=== PATIENT | female | born 2000 | race Hispanic/Latino ===

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

== ENCOUNTER 2019-02-23 06:33 | Emergency (ER) | payer SELFPAY ==
[2019-02-23] MEDS ORDERED: NA CHLORIDE 0.9% 500 ML ONE (07:19)
[2019-02-23 07:52] LABS: Absolute Lymphocytes (CBC) 3.4 K/uL (0.7-4.9); Basophils % 0.5 % (0-1.3); Hematocrit 37.8 % (36.0-45.0); Lymphocytes % 34.9 % (15.3-44.8); MPV 7.9 fL (7.6-11.3); RBC Red Blood Cell Count 4.48 M/uL (3.86-4.86)
[2019-02-23 08:44] LABS: ALT/SGPT 17 U/L (12-78); AST/SGOT 10 U/L (15-37); Albumin 3.3 g/dL (3.4-5.0); Alkaline Phosphatase 75 U/L (45-117); BUN Blood Urea Nitrogen 4 mg/dL (7-18); Bicarbonate 24 mmol/L (21-32); Bilirubin Direct < 0.1 mg/dL (0-0.2); Bilirubin Total 0.2 mg/dL (0.2-1.0); Glucose Level 88 mg/dL (74-106); HCG, Quantitative 2388 mIU/mL (1-3); Lipase 155 U/L (73-393); Potassium 3.9 mmol/L (3.5-5.1); Protein, Total 6.8 g/dL (6.4-8.2); Sodium Level 138 mmol/L (136-145)
--- NOTE | 2019-02-23 08:54 | RAD REPORT ---
EXAM DESCRIPTION: US - Transvaginal OB - 02/23/2019 8:42 am CLINICAL HISTORY: ABD CRAMPING, COMPARISON: No comparisons FINDINGS: A single gestational sac is seen within the uterus. The shape of the sac is within normal limits for gestational age. No yolk sac or embryo yet identified. Based on average sac diameter, gest ational age is estimated at 5 weeks 2 days. The maternal adnexa and ovaries are within normal limits. Normal Doppler blood flow was demonstrated to both ovaries. Trace pelvic free fluid. IMPRESSION: Finding are compatible with early IUP. Embryonic components are not yet identified. Advi se followup sonography in 10-12 days.
--- NOTE | 2019-02-23 09:03 | ER ---
Nurse's Notes [facility] Name: Jefry Britton Age: 18 yrs Sex: Female : 2000 Arrival Date: 02/23/2019 Time: 06:35 Bed 17 Private MD: Diagnosis: Intrauterine ;Generalized abdominal pain Presentation: 02/23 06:39 Presenting complaint: EMS states: Pt reports severe abdominal cramping for the past 2 ea days, pt reports pain is the right lower abdomen. Transition of care: patient was not received from another setting of care. Onset of symptoms was February 23, 2019. Risk Assessment: Do you want to hurt yourself or someone else? Patient reports no desire to harm self or others. Initial Sepsis Screen: Does the patient meet any 2 criteria? No. Patient's initial sepsis screen is negative. Does the patient have a suspected source of infection? No. Patient's initial sepsis screen is negative. Care prior to arrival: None. 06:39 Method Of Arrival: EMS: [facility] ea 06:39 Acuity: TIFFANY 4 ea 07:20 Acuity: TIFFANY 3 iw Triage Assessment: 06:45 General: Appears in no apparent distress. Behavior is calm, cooperative, appropriate ea for age. Pain: Complains of pain in right lower quadrant. Neuro: Level of Consciousness is awake, alert, obeys commands, Oriented to person, place, time, situation. Respiratory: Airway is patent Respiratory effort is even, unlabored, Respiratory pattern is regular, symmetrical. Derm: Skin is pink, warm \T\ dry. 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 - Social history:: Smoking status: Patient/guardian denies using tobacco. - Ebola Screening: : No symptoms or risks identified at this time. Screenin:41 Abuse screen: Denies threats or abuse. Nutritional screening: No deficits noted. ea Tuberculosis screening: No symptoms or risk factors identified. Fall Risk None identified. Assessment: 07:30 General: Appears in no apparent distress. uncomfortable, Behavior is calm, cooperative, jl7 appropriate for age. Pain: Complains of pain in right lower quadrant Pain radiates to anterior aspect of right lateral abdomen and right upper quadrant Pain currently is 0 out of 10 on a pain scale. at worst was 7 out of 10 on a pain scale. Quality of pain is described as crampy, throbbing, Pain began 2-3 days ago. Is intermittent, Alleviated by eating. Neuro: Level of Consciousness is awake, alert, obeys commands, Oriented to person, place, time, situation. Cardiovascular: Patient's skin is warm and dry. Respiratory: Airway is patent Respiratory effort is even, unlabored, Respiratory pattern is regular, symmetrical. GI: Abdomen is round non-distended. : No signs and/or symptoms were reported regarding the genitourinary system. Urine is cloudy. Derm: Skin is pink, warm \T\ dry. 08:30 Reassessment: Patient appears in no apparent distress at this time. No changes from jl7 previously documented assessment. Patient and/or family updated on plan of care and expected duration. Pain level reassessed. Patient is alert, oriented x 3, equal unlabored respirations, skin warm/dry/pink. Vital Signs: 06:42 BP 127 / 85; Pulse 98; Resp 18; Temp 98.9; Pulse Ox 100% on R/A; Weight 54.43 kg; ea Height 5 ft. (152.40 cm); Pain 0/10; 08:05 BP 102 / 57 LA Supine (auto/reg); Pulse 93 LA; Resp 18; Pulse Ox 100% on R/A; mb4 08:42 BP 121 / 79 LA Sitting (auto/reg); Pulse 87 LA; Resp 18 S; Pulse Ox 100% on R/A; mb4 06:42 Body Mass Index 23.44 (54.43 kg, 152.40 cm) ea ED Course: 06:35 Patient arrived in ED. ds1 06:36 Kamron Desai PA is PHCP. jr8 06:36 Jae Villatoro MD is Attending Physician. jr8 06:41 Triage completed. ea 06:44 Arm band placed on right wrist. Patient placed in an exam room, on a stretcher, on ea pulse oximetry. 06:44 Patient has correct armband on for positive identification. Bed in low position. Call ea light in reach. Side rails up X2. 07:08 Wilfrido Martinez, RN is Primary Nurse. jl7 07:23 Radiology exam delayed due to test not completed at this time. hr 07:30 No provider procedures requiring assistance completed. Initial lab(s) drawn, by me, shari sent to lab. Inserted saline lock: 22 gauge in right forearm, using aseptic technique. Blood collected. 08:32 US Transvaginal Ob In Process Unspecified. EDMS 08:46 Urine collected: clean catch specimen, clear. mb4 09:43 IV discontinued, intact, bleeding controlled, No redness/swelling at site. Pressure jl7 dressing applied. Administered Medications: No medications were administered Outcome: 09:00 Discharge ordered by . aric 09:43 Discharged to home ambulatory. jl7 09:43 Condition: stable 09:43 Discharge instructions given to patient, Instructed on discharge instructions, follow up and referral plans. Demonstrated understanding of instructions, follow-up care. 09:43 Patient left the ED. jl7 Signatures: Dispatcher [employer] EDIA Leanne Dudley Ranjeet, Samara ds1 Bebe Nelson, RN RN Kamron Desai PA PA jrWilfrido Benjamin, Ashlee Groves RN, Christine Berrios RN, ea mb4 Corrections: (The following items were deleted from the chart) 09:43 08:30 IV discontinued, intact, bleeding controlled, No redness/swelling at site. jl7 Pressure dressing applied, jl7
--- NOTE | 2019-02-23 09:04 | EDPHYS ---
Physician Documentation [facility] Name: Jefry Britton Age: 18 yrs Sex: Female : 2000 Arrival Date: 02/23/2019 Time: 06:35 Bed 17 Private MD: ED Physician Jae Villatoro HPI: 02/23 07:28 This 18 yrs old Female presents to ER via EMS with complaints of Possible jr8 . 07:28 Onset: The symptoms/episode began/occurred 5 day(s) ago. Associated signs and symptoms: jr8 Pertinent positives: abdominal pain. The patient has not recently seen a physician. Pt states she took 2 tests 5 days ago which were both positive, began having right sided abd pain and some nausea at home. Denies vaginal bleeding. . 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 - Social history:: Smoking status: Patient/guardian denies using tobacco. - Ebola Screening: : No symptoms or risks identified at this time. ROS: 07:28 Constitutional: Negative for fever, chills, and weight loss, Eyes: Negative for injury, jr8 pain, redness, and discharge, ENT: Negative for injury, pain, and discharge, Neck: Negative for injury, pain, and swelling, Cardiovascular: Negative for chest pain, palpitations, and edema, Respiratory: Negative for shortness of breath, cough, wheezing, and pleuritic chest pain, Back: Negative for injury and pain, : Negative for injury, bleeding, discharge, and swelling, MS/Extremity: Negative for injury and deformity, Skin: Negative for injury, rash, and discoloration, Neuro: Negative for headache, weakness, numbness, tingling, and seizure. 07:28 Abdomen/GI: Positive for abdominal pain, nausea and vomiting, Negative for diarrhea, constipation, dysphagia, hematemesis, black/tarry stool, rectal pain, rectal bleeding. Exam: 07:28 Constitutional: This is a well developed, well nourished patient who is awake, alert, jr8 and in no acute distress. Head/Face: Normocephalic, atraumatic. Eyes: Pupils equal round and reactive to light, extra-ocular motions intact. Lids and lashes normal. Conjunctiva and sclera are non-icteric and not injected. Cornea within normal limits. Periorbital areas with no swelling, redness, or edema. ENT: Nares patent. No nasal discharge, no septal abnormalities noted. Tympanic membranes are normal and external auditory canals are clear. Oropharynx with no redness, swelling, or masses, exudates, or evidence of obstruction, uvula midline. Mucous membranes moist. Neck: Trachea midline, no thyromegaly or masses palpated, and no cervical lymphadenopathy. Supple, full range of motion without nuchal rigidity, or vertebral point tenderness. No Meningismus. Chest/axilla: Normal chest wall appearance and motion. Nontender with no deformity. No lesions are appreciated. Cardiovascular: Regular rate and rhythm with a normal S1 and S2. No gallops, murmurs, or rubs. Normal PMI, no JVD. No pulse deficits. Respiratory: Lungs have equal breath sounds bilaterally, clear to auscultation and percussion. No rales, rhonchi or wheezes noted. No increased work of breathing, no retractions or nasal flaring. Back: No spinal tenderness. No costovertebral tenderness. Full range of motion. Skin: Warm, dry with normal turgor. Normal color with no rashes, no lesions, and no evidence of cellulitis. MS/ Extremity: Pulses equal, no cyanosis. Neurovascular intact. Full, normal range of motion. Neuro: Awake and alert, GCS 15, oriented to person, place, time, and situation. Cranial nerves II-XII grossly intact. Motor strength 5/5 in all extremities. Sensory grossly intact. Cerebellar exam normal. Normal gait. 07:28 Abdomen/GI: Inspection: distension, that is mild, gravid appearance, is noted, Bowel sounds: normal, in all quadrants, Palpation: abdomen is soft and non-tender, in all quadrants, Indicators: McBurney's point is not tender, Gibson's sign is negative, Rovsing's sign is negative, Obturator sign is negative, Psoas sign is negative. Vital Signs: 06:42 BP 127 / 85; Pulse 98; Resp 18; Temp 98.9; Pulse Ox 100% on R/A; Weight 54.43 kg; ea Height 5 ft. (152.40 cm); Pain 0/10; 08:05 BP 102 / 57 LA Supine (auto/reg); Pulse 93 LA; Resp 18; Pulse Ox 100% on R/A; mb4 08:42 BP 121 / 79 LA Sitting (auto/reg); Pulse 87 LA; Resp 18 S; Pulse Ox 100% on R/A; mb4 06:42 Body Mass Index 23.44 (54.43 kg, 152.40 cm) ea MDM: 06:36 Patient medically screened. 8 08:59 Data reviewed: vital signs, nurses notes, lab test result(s), radiologic studies, jr8 ultrasound. Data interpreted: Pulse oximetry: on room air is 100 %. Interpretation: normal. Counseling: I had a detailed discussion with the patient and/or guardian regarding: the historical points, exam findings, and any diagnostic results supporting the discharge/admit diagnosis, lab results, radiology results, the need for outpatient follow up, an OB/Gyne specialist, to return to the emergency department if symptoms worsen or persist or if there are any questions or concerns that arise at home. 02/23 07:19 Order name: Basic Metabolic Panel; Complete Time: 08:46 02/23 07:19 Order name: CBC with Diff; Complete Time: 08:02 02/23 07:19 Order name: Creatinine for Radiology; Complete Time: 08:31 02/23 07:19 Order name: Hepatic Function; Complete Time: 08:46 02/23 07:19 Order name: Lipase; Complete Time: 08:46 02/23 07:19 Order name: Quantitative Hcg; Complete Time: 08:46 02/23 07:19 Order name: Urine Dipstick-Ancillary (obtain specimen); Complete Time: 07:39 02/23 07:19 Order name: Urine Test (obtain specimen); Complete Time: 07:39 02/23 07:19 Order name: IV Saline Lock; Complete Time: 07:38 02/23 07:19 Order name: Labs collected and sent; Complete Time: 07:38 02/23 07:19 Order name: US Transvaginal Ob; Complete Time: 08:58 jr8 02/23 07:20 Order name: Urine Dipstick--Ancillary (enter results) bd 02/23 07:20 Order name: Urine --Ancillary (enter results) bd Administered Medications: No medications were administered Disposition: 02/23/19 09:00 Discharged to Home. Impression: Intrauterine , Generalized abdominal pain. - Condition is Stable. - Discharge Instructions: Abdominal Pain, Adult, Abdominal Pain During , Cholestasis of . - Medication Reconciliation Form, Thank You Letter, Antibiotic Education, Prescription Opioid Use form. - Follow up: Private Physician; When: 2 - 3 days; Reason: Recheck today's complaints, Continuance of care, Re-evaluation by your physician. - Problem is new. - Symptoms have improved. Signatures: Dispatcher [employer] EDMS Kamron Desai PA PA jr8 Wilfrido Martinez RN RN jl7 Ashlee Arizmendi RN RN ea Corrections: (The following items were deleted from the chart) 09:43 09:00 02/23/2019 09:00 Discharged to Home. Impression: Intrauterine ; jl7 Generalized abdominal pain. Condition is Stable. Forms are Medication Reconciliation Form, Thank You Letter, Antibiotic Education, Prescription Opioid Use. Follow up: Private Physician; When: 2 - 3 days; Reason: Recheck today's complaints, Continuance of care, Re-evaluation by your physician. Problem is new. Symptoms have improved. jr8
[2019-02-23 09:57] VITALS: TEMP 98.9; O2SAT 100
[2019-02-23 10:01] VITALS: BP 121/79
[2019-02-23 13:47] LABS: Urine Blood NEGATIVE (NEG); Urine Glucose NEGATIVE (NEG); Urine Protein NEGATIVE (NEG)
== END 2019-02-23 09:43 | disposition home or self-care (01) ==
LOC: ER 06:33
DX: O26.891 Other specified pregnancy related conditions, first trimester (principal); R10.84 Generalized abdominal pain; Z3A.01 Less than 8 weeks gestation of pregnancy
CPT/HCPCS: 36415; 76817; 80048; 80076; 81003; 81025; 83690; 84702; 85025; 99284

== ENCOUNTER 2019-02-28 23:53 | Emergency (ER) | payer SELFPAY ==
[2019-03-01] MEDS ORDERED: NA CHLORIDE 0.9% 1,000 ML ONE (00:23)
[2019-03-01 00:44] LABS: Urine Blood NEGATIVE (NEG); Urine Glucose NEGATIVE (NEG); Urine Protein NEGATIVE (NEG); Urine Specific Gravity >1.030 (1.005-1.030); Urine pH 5.5 (5.0-7.0)
[2019-03-01 00:53] LABS: Absolute Lymphocytes (CBC) 4.2 K/uL (0.7-4.9); Basophils % 0.3 % (0-1.3); Hematocrit 35.9 % (36.0-45.0); Lymphocytes % 31.7 % (15.3-44.8); MPV 7.4 fL (7.6-11.3); RBC Red Blood Cell Count 4.27 M/uL (3.86-4.86)
[2019-03-01 01:08] LABS: BUN Blood Urea Nitrogen 8 mg/dL (7-18); Bicarbonate 25 mmol/L (21-32); Glucose Level 75 mg/dL (74-106); Potassium 3.5 mmol/L (3.5-5.1); Sodium Level 138 mmol/L (136-145)
--- NOTE | 2019-03-01 03:36 | ER ---
Nurse's Notes [facility] Name: Jefry Britton Age: 18 yrs Sex: Female : 2000 Arrival Date: 03/01/2019 Time: 00:04 Bed 17 Private MD: Diagnosis: related conditions, unspecified, first trimester;Upper abdominal pain, unspecified;Spotting complicating , first trimester Presentation: 02/28 23:49 Presenting complaint: EMS states: "Upper abdominal cramps since last week. Vaginal cc3 spotting that started 35 minutes ago, patient said she's 5 weeks " Patient said she has history of miscarriage when she was 15 years old. Transition of care: patient was not received from another setting of care. Onset of symptoms was March 01, 2019. Risk Assessment: Do you want to hurt yourself or someone else? Patient reports no desire to harm self or others. Initial Sepsis Screen: Does the patient meet any 2 criteria? HR > 90 bpm. Does the patient have a suspected source of infection? No. Patient's initial sepsis screen is negative. Care prior to arrival: None. 23:49 Method Of Arrival: EMS: [facility] cc3 23:49 Acuity: TIFFANY 3 cc3 Triage Assessment: 23:49 General: Appears in no apparent distress. comfortable, Behavior is calm, cooperative, cc3 appropriate for age. Pain: Complains of pain in upper abdomen Pain currently is 6 out of 10 on a pain scale. EENT: No signs and/or symptoms were reported regarding the EENT system. Neuro: Level of Consciousness is awake, alert, obeys commands, Oriented to person, place, time, situation, Appropriate for age. Cardiovascular: Denies chest pain, Heart tones S1 S2 present Capillary refill < 3 seconds in bilateral fingers Patient's skin is warm and dry. Respiratory: Airway is patent Respiratory effort is even, unlabored, Respiratory pattern is regular, symmetrical. GI: Abdomen is round distended, Abd is rigid X 4 quads. : No signs and/or symptoms were reported regarding the genitourinary system. Derm: Skin is intact, is healthy with good turgor, Skin is pink, warm \\T\\ dry. normal. Musculoskeletal: Circulation, motion, and sensation intact. Range of motion: intact in all extremities. 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 - Social history:: Smoking status: Patient/guardian denies using tobacco, never smoked. - Ebola Screening: : No symptoms or risks identified at this time. Screenin:49 Abuse screen: Denies threats or abuse. Denies injuries from another. Nutritional cc3 screening: No deficits noted. Tuberculosis screening: No symptoms or risk factors identified. Fall Risk Ambulatory Aid- None/Bed Rest/Nurse Assist (0 pts). Gait- Normal/Bed Rest/Wheelchair (0 pts) Mental Status- Oriented to own ability (0 pts). Assessment: 23:49 General: see triage assessment. 3 03/01 00:30 Reassessment: Patient appears in no apparent distress at this time. Patient and/or cc3 family updated on plan of care and expected duration. Pain level reassessed. Patient is alert, oriented x 3, equal unlabored respirations, skin warm/dry/pink. 01:20 Reassessment: Patient appears in no apparent distress at this time. Patient and/or cc3 family updated on plan of care and expected duration. Pain level reassessed. Patient is alert, oriented x 3, equal unlabored respirations, skin warm/dry/pink. 02:45 Reassessment: Patient appears in no apparent distress at this time. Patient and/or cc3 family updated on plan of care and expected duration. Pain level reassessed. Patient is alert, oriented x 3, equal unlabored respirations, skin warm/dry/pink. Patient taken by production line technician to their department by wheelchair. 03:05 Reassessment: Called lab at 1108 and spoke with staff named Kristen, informed her to [facility] kindly add-on the newly ordered HCGQ sample. 03:59 Reassessment: Patient appears in no apparent distress at this time. Patient is alert, rr5 oriented x 3, equal unlabored respirations, skin warm/dry/pink. discharge instruction given and explained without complaints made. verbalized understanding. Vital Signs: 02/28 23:49 BP 131 / 92; Pulse 100; Resp 18 S; Temp 98.2(O); Pulse Ox 100% on R/A; Weight 58.97 kg cc3 (R); Height 5 ft. 0 in. (152.40 cm) (R); Pain 6/10; 03/01 00:20 BP 131 / 92; Pulse 96; Resp 17 S; Pulse Ox 100% on R/A; cc3 01:20 BP 108 / 84; Pulse 96; Resp 17 S; Pulse Ox 100% on R/A; cc3 02:30 BP 103 / 64; Pulse 105; Resp 19 S; Pulse Ox 100% on R/A; cc3 03:55 BP 105 / 65; Pulse 99; Resp 17; Temp 98.1; Pulse Ox 98% ; rr5 02/28 23:49 Body Mass Index 25.39 (58.97 kg, 152.40 cm) cc3 ED Course: 02/28 23:49 Patient has correct armband on for positive identification. Placed in gown. Bed in low cc3 position. Call light in reach. Side rails up X 1. Pulse ox on. NIBP on. 23:49 Arm band placed on right wrist. Patient notified of wait time. cc3 03/01 00:04 Patient arrived in ED. cc3 00:05 Urine collected: clean catch specimen, clear, richard colored. mt 00:06 Mely Castro FNP-C [facility]. snw 00:06 Lionel Foster MD is Attending Physician. snw 00:09 Marleni Betts is Primary Nurse. cc3 00:16 Triage completed. cc3 00:35 Inserted saline lock: 20 gauge in right antecubital area, using aseptic technique. cc3 Blood collected. 00:55 IV discontinued, intact, bleeding controlled, No redness/swelling at site. Pressure rr5 dressing applied, G20 right AC. 00:57 Inserted saline lock: 22 gauge in left antecubital area, using aseptic technique. rr5 01:09 Notified Nurse Practitioner and/or Physician Airplane Technician of a critical lab result(s), bb D-Dimer of [id number]. Mely Castro MDM DEVELOPER notified. 03:29 US Extremity Venous W Compression Hung In Process Unspecified. EDMS 03:30 Transvaginal OB US In Process Unspecified. EDMS 03:30 Report given to FRANKIE Tovar. cc3 03:55 No provider procedures requiring assistance completed. IV discontinued, intact, rr5 bleeding controlled, No redness/swelling at site. Pressure dressing applied. Administered Medications: 00:35 Drug: NS 0.9% 1000 ml Route: IV; Rate: 1000 ml; Site: right antecubital; cc3 01:30 Follow up: Response: No adverse reaction; IV Status: Completed infusion; IV Intake: cc3 1000ml Intake: 01:30 IV: 1000ml; Total: 1000ml. cc3 Outcome: 03:35 Discharge ordered by . snw 03:55 Discharged to home ambulatory. rr5 03:55 Condition: stable 03:55 Discharge instructions given to patient, Instructed on discharge instructions, follow up and referral plans. medication usage, Demonstrated understanding of instructions, follow-up care, medications, Prescriptions given X 1. 03:58 Patient left the ED. rr5 Signatures: Dispatcher [employer] EDMS Mely Castro, GENERAL MANAGER FOOD-C GENERAL MANAGER FOOD-Melbaw Sinai Vizcaino RN RN Ольга Barahona mt, Charlene cc3 Guy Bell RN RN rr5 Corrections: (The following items were deleted from the chart) 02:44 09 23:49 GI: Abdomen is round cc3 cc3 03/01 03:07 02:42 Reassessment: Patient appears in no apparent distress at this time. Patient cc3 and/or family updated on plan of care and expected duration. Pain level reassessed. Patient is alert, oriented x 3, equal unlabored respirations, skin warm/dry/pink. cc3
--- NOTE | 2019-03-01 03:36 | EDPHYS ---
Physician Documentation [facility] Name: Jefry Britton Age: 18 yrs Sex: Female : 2000 Arrival Date: 03/01/2019 Time: 00:04 Bed 17 Private MD: ED Physician Lionel Foster HPI: 03/01 02:01 This 18 yrs old Female presents to ER via EMS with complaints of Abdominal snw Cramping, Vaginal Bleeding, + Preg <12wks. 02:01 The patient presents with vaginal bleeding that is spotting. Onset: The snw symptoms/episode began/occurred suddenly, today. Modifying factors: The symptoms are alleviated by nothing, the symptoms are aggravated by nothing. Associated signs and symptoms: Pertinent positives: shortness of breath. Severity of symptoms: At their worst the symptoms were moderate. The patient is sexually active. The patient has experienced a previous episode, approximately 2 weeks ago. The patient has been recently seen at the [facility] Emergency Department, 02/20/19. 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 - Social history:: Smoking status: Patient/guardian denies using tobacco, never smoked. - Ebola Screening: : No symptoms or risks identified at this time. ROS: 03/01 01:55 Constitutional: Negative for fever, chills, and weight loss, Eyes: Negative for injury, snw pain, redness, and discharge, ENT: Negative for injury, pain, and discharge, Neck: Negative for injury, pain, and swelling, Cardiovascular: Negative for chest pain, palpitations, and edema, Respiratory: Negative for shortness of breath, cough, wheezing, and pleuritic chest pain, Back: Negative for injury and pain, : Negative for injury, bleeding, discharge, and swelling, MS/Extremity: Negative for injury and deformity, Skin: Negative for injury, rash, and discoloration, Neuro: Negative for headache, weakness, numbness, tingling, and seizure. Constitutional: Negative for fever, chills, and weight loss. Respiratory: Negative for cough, wheezing, and pleuritic chest pain, + shortness of breath : Negative for injury, discharge, and swelling, + spotting Abdomen/GI: Positive for abdominal pain, of the epigastric area. Exam: 01:53 Constitutional: This is a well developed, well nourished patient who is awake, alert, snw and in no acute distress. Head/Face: Normocephalic, atraumatic. Eyes: Pupils equal round and reactive to light, extra-ocular motions intact. Lids and lashes normal. Conjunctiva and sclera are non-icteric and not injected. Cornea within normal limits. Periorbital areas with no swelling, redness, or edema. ENT: Nares patent. No nasal discharge, no septal abnormalities noted. Tympanic membranes are normal and external auditory canals are clear. Oropharynx with no redness, swelling, or masses, exudates, or evidence of obstruction, uvula midline. Mucous membranes moist. Neck: Trachea midline, no thyromegaly or masses palpated, and no cervical lymphadenopathy. Supple, full range of motion without nuchal rigidity, or vertebral point tenderness. No Meningismus. Chest/axilla: Normal chest wall appearance and motion. Nontender with no deformity. No lesions are appreciated. Cardiovascular: Regular rate and rhythm with a normal S1 and S2. No gallops, murmurs, or rubs. Normal PMI, no JVD. No pulse deficits. Respiratory: Lungs have equal breath sounds bilaterally, clear to auscultation and percussion. No rales, rhonchi or wheezes noted. No increased work of breathing, no retractions or nasal flaring. Back: No spinal tenderness. No costovertebral tenderness. Full range of motion. Skin: Warm, dry with normal turgor. Normal color with no rashes, no lesions, and no evidence of cellulitis. MS/ Extremity: Pulses equal, no cyanosis. Neurovascular intact. Full, normal range of motion. Neuro: Awake and alert, GCS 15, oriented to person, place, time, and situation. Cranial nerves II-XII grossly intact. Motor strength 5/5 in all extremities. Sensory grossly intact. Cerebellar exam normal. Normal gait. Psych: Awake, alert, with orientation to person, place and time. Behavior, mood, and affect are within normal limits. 01:53 Abdomen/GI: Inspection: distension, that is moderate, in the diffuse abdomen, gravid appearance, is noted, pt abd similar to 6 mo abdomen. Pt with 5wk 3d gestation on 02/20/19, Bowel sounds: normal, Palpation: mild abdominal tenderness, in the epigastric area. Vital Signs: 02/28 23:49 BP 131 / 92; Pulse 100; Resp 18 S; Temp 98.2(O); Pulse Ox 100% on R/A; Weight 58.97 kg cc3 (R); Height 5 ft. 0 in. (152.40 cm) (R); Pain 11/14; 03/01 00:20 BP 131 / 92; Pulse 96; Resp 17 S; Pulse Ox 100% on R/A; cc3 01:20 BP 108 / 84; Pulse 96; Resp 17 S; Pulse Ox 100% on R/A; cc3 02:30 BP 103 / 64; Pulse 105; Resp 19 S; Pulse Ox 100% on R/A; cc3 03:55 BP 105 / 65; Pulse 99; Resp 17; Temp 98.1; Pulse Ox 98% ; rr5 02/28 23:49 Body Mass Index 25.39 (58.97 kg, 152.40 cm) cc3 MDM: 00:08 Patient medically screened. snw 03:29 Data reviewed: vital signs, nurses notes. Data interpreted: Pulse oximetry: on room air snw is 100 %. Interpretation: normal. Counseling: I had a detailed discussion with the patient and/or guardian regarding: the historical points, exam findings, and any diagnostic results supporting the discharge/admit diagnosis, lab results, radiology results, the need for outpatient follow up, to return to the emergency department if symptoms worsen or persist or if there are any questions or concerns that arise at home. Special discussion: Based on the patient's Hx, exam, and Dx evaluation, there is no indication for emergent surgery or inpatient Tx. It is understood by the patient/guardian that if the Sx's persist or worsen they need to return immediately for re-evaluation. Based on the history and exam findings, there is no indication for further emergent testing or inpatient evaluation. I discussed with the patient/guardian the need to see the OB Gyne specialist for further evaluation of the symptoms. 03/01 00:06 Order name: Urine Dipstick--Ancillary (enter results); Complete Time: 00:46 mw2 03/01 00:06 Order name: Urine --Ancillary (enter results); Complete Time: 00:46 mw2 03/01 00:07 Order name: Basic Metabolic Panel; Complete Time: 01:09 snw 03/01 00:07 Order name: CBC with Diff; Complete Time: 00:56 snw 03/01 00:07 Order name: DD; Complete Time: 01: snw 03/01 03:02 Order name: HCG-Quantitative; Complete Time: 21:23 snw 03/01 00:07 Order name: IV Saline Lock; Complete Time: 00:52 snw 03/01 00:07 Order name: Labs collected and sent; Complete Time: 00:52 snw 03/01 00:07 Order name: NPO; Complete Time: 00:10 snw 03/01 02:46 Order name: US Extremity Venous W Compression Hung; Complete Time: 21:23 snw 03/01 02:46 Order name: Transvaginal OB US; Complete Time: 21:23 snw 03/01 03:02 Order name: Abo/rh Typing; Complete Time: 03:23 snw Administered Medications: 00:35 Drug: NS 0.9% 1000 ml Route: IV; Rate: 1000 ml; Site: right antecubital; cc3 01:30 Follow up: Response: No adverse reaction; IV Status: Completed infusion; IV Intake: cc3 1000ml Disposition: 04:02 Co-signature as Attending Physician, Lionel Foster MD. rn Disposition: 03/01/19 03:35 Discharged to Home. Impression: related conditions, unspecified, first trimester, Upper abdominal pain, unspecified, Spotting complicating , first trimester. - Condition is Stable. - Discharge Instructions: Abdominal Pain During , Vaginal Bleeding During , First Trimester, First Trimester of . - Prescriptions for Vitamin 27- 0.8 mg Oral Tablet - take 1 tablet by ORAL route once daily; 60 tablet. - Medication Reconciliation Form, Thank You Letter, Antibiotic Education, Prescription Opioid Use form. - Follow up: Private Physician; When: 2 - 3 days; Reason: Recheck today's complaints, Continuance of care, Re-evaluation by your physician. Follow up: Emergency Department; When: As needed; Reason: Worsening of condition. Signatures: Dispatcher Ubooly EDOH Mely Castro, PRINTING BINDERY ASSISTANT-C PRINTING BINDERY ASSISTANT-Csnw Lionel Foster MD MD rn Cordel, Charlene cc3 Guy Bell RN RN rr5 Corrections: (The following items were deleted from the chart) 03:58 03:35 03/01/2019 03:35 Discharged to Home. Impression: related conditions, rr5 unspecified, first trimester; Upper abdominal pain, unspecified; Spotting complicating , first trimester. Condition is Stable. Discharge Instructions: Abdominal Pain During , Vaginal Bleeding During , First Trimester, First Trimester of . Forms are Medication Reconciliation Form, Thank You Letter, Antibiotic Education, Prescription Opioid Use. Follow up: Private Physician; When: 2 - 3 days; Reason: Recheck today's complaints, Continuance of care, Re-evaluation by your physician. Follow up: Emergency Department; When: As needed; Reason: Worsening of condition. snw
[2019-03-01 04:16] VITALS: O2SAT 100
[2019-03-01 04:26] VITALS: BP 103/64
--- NOTE | 2019-03-01 06:38 | RAD REPORT ---
EXAM DESCRIPTION: US - Extrem Venous W Compress Hung - 03/01/2019 3:28 am CLINICAL HISTORY: shortness of breath Bilateral leg edema and swelling. COMPARISON: No comparisons TECHNIQUE: Real-time sonographic interrogation of the left and right lower extremity deep venous sys tems was performed. FINDINGS: Normal compressibility, flow augmentation, phasic flow and spontaneous flow is identified in both the left and right lower extremity deep venous systems. IMPRESSION: No sonographic evidence of left or right lower extremity deep venous thrombosis.
--- NOTE | 2019-03-01 07:15 | RAD REPORT ---
EXAM DESCRIPTION: US - Transvaginal OB - 03/01/2019 3:29 am CLINICAL HISTORY: Abd pain;Abd cramping, COMPARISON: Transvaginal OB dated 02/23/2019 FINDINGS: A single gestational sac is seen within the uterus. The shape of the sac is within normal limits for gestational age. Within the sac is a single pole with crown-rump length of 2 mm, cor relating to estimated gestational age of 5 weeks 5 days. Estimated date of delivery is 10/25/2019. Heart rate is 107 BPM. The placenta is not yet developed due to early gestational age. The maternal adnexa and ovaries are within normal limits. Normal Doppler blood flow was demonstrated to both ovaries. IMPRESSION: Single live early intrauterine gestation with estimated gestational age of 5 weeks 5 day s, RENAE 10/25/2019. No unusual or unexpected finding.
== END 2019-03-01 03:58 | disposition home or self-care (01) ==
LOC: ER 23:53
DX: O26.851 Spotting complicating pregnancy, first trimester (principal); Z3A.01 Less than 8 weeks gestation of pregnancy
CPT/HCPCS: 36415; 76817; 80048; 81003; 81025; 84702; 85025; 85379; 86900; 86901; 93970; 96360; 99284; J7030